=== PATIENT | male | born 1930 | race Caucasian/White ===

== ENCOUNTER 2017-05-09 08:41 | Outpatient (CLI) | payer OTHER | END 2017-05-09 09:30 | disposition home or self-care (01) | LOC: NUCLEAR 08:41 | DX: I65.23 Occlusion and stenosis of bilateral carotid arteries (principal) ==

== ENCOUNTER 2017-06-17 21:34 | Emergency (ER) | payer OTHER ==
[~2017-06-17] VITALS: Ht 165.1 cm; Wt 55.8 kg
[2017-06-17] MEDS ORDERED: LASIX20 MG (22:41)
[2017-06-17] MEDS ORDERED: ALPRAZOLAM0.25 MG (22:41)
[2017-06-17] MEDS ORDERED: ATENOLOL25 MG (22:42)
[2017-06-17] MEDS ORDERED: ASPIR 8181 MG (22:42)
[2017-06-17] MEDS ORDERED: ABATINEX680 MG (22:43)
[2017-06-20] MEDS ORDERED: IRON1TAB4 PO (07:19)
== END 2017-06-20 07:18 | disposition home or self-care (01) ==
LOC: ER 21:34
DX: D50.0 Iron deficiency anemia secondary to blood loss (chronic) (principal); K62.5 Hemorrhage of anus and rectum

== ENCOUNTER 2017-06-30 09:44 | Outpatient (CLI) | payer OTHER ==
[~2017-06-30 09:44] MED LIST: ABATINEX680 MG; ALPRAZOLAM0.25 MG; ASPIR 8181 MG; ATENOLOL25 MG; IRON1TAB4 PO; LASIX20 MG
== END 2017-06-30 09:57 | disposition home or self-care (01) ==
LOC: TOM 09:44
DX: K62.5 Hemorrhage of anus and rectum (principal); D50.9 Iron deficiency anemia, unspecified; K64.4 Residual hemorrhoidal skin tags; K59.09 Other constipation

== ENCOUNTER → 2017-07-25 | Emergency (ER) | payer OTHER ==
[~2017-07-25] VITALS: Ht 165.1 cm; Wt 45.4 kg
[~2017-07-25] MED LIST changes: +DANAZOL100 MG
== END | disposition home or self-care (01) ==
LOC: ER 15:06
DX: K62.5 Hemorrhage of anus and rectum (principal); D50.0 Iron deficiency anemia secondary to blood loss (chronic)

== ENCOUNTER → 2017-08-10 | Emergency (ER) | payer OTHER ==
[~2017-08-10] VITALS: Ht 162.6 cm; Wt 54.4 kg
== END | disposition home or self-care (01) ==
LOC: ER 13:58
DX: K52.9 Noninfective gastroenteritis and colitis, unspecified (principal); E86.0 Dehydration

== ENCOUNTER 2018-05-16 19:31 | Inpatient (IN) | payer OTHER ==
[~2018-05-16] VITALS: Ht 165.1 cm; Wt 56.7 kg
--- NOTE | 2018-05-16 20:22 | NUR ---
SE RECIBE PACIENTE ALERTA Y ORIENTADO X3 QUE REFIERE TOS HACE 3 BHARDWAJ Y DIARRHEA DESDE HOY. PACIENTE VERBALIZA SER ANEMICO. PACIENTE SE MUESTRA TENER DIARRHEA ACTIVA EN EL MOMENTO.
--- NOTE | 2018-05-16 22:05 | NUR ---
PT ALERTA Y ORIENTADO X3 ESFERAS SE LE ORIENTA SOBRE TX Y REFIERE ENTEDER. SE TANYA MUESTRAS DE PAWEL CON TECNICAS ASEPTICAS. SE ADMINISTRAN MEDICAMENTOS ORDENADOS. PT TOLERA [place].
--- NOTE | 2018-05-17 00:57 | NUR ---
SE CANALIZA A PTE EN ANTEBRAZO R+ CON ANGIO# 20, SE ORIENTA SOBRE MEDICAMENTO ADMINISTRADO PO, SE LE REALIZA TUBO PILOTOS Y SE LLAMA A BANCO DE PAWEL. SE HABLA CON STERLING DE BANCO DE PAWEL PARA RECOGER TUBOS PILOTOS.
--- NOTE | 2018-05-17 08:09 | NUR ---
SE RECIBE PTE DEL TURNO ANTERIOR ALERTA Y ORIENTADO X 3ESFERAS, EN CAMA NIVEL MAS BAJO, HOLLOWAY DE IDENTIFICACION Y BARANDAS ELEVADAS POR PRECAUCION. SE OBSERVA CON BUEN PATRON RESPIRATORIO Y PIEL TIBIA AL TACTO. IV PATENTE Y YASMNI DE EDEMA O ERITEMA CON 0.9% NSS @125ML/HR. PTE PENDIENTE A TRANSFUNDIR 2U DE PRBC FRACCIONADAS, LAS MISMAS YA DISPONIBLES. PENDIENTE A CONSULTA CON DR Jennifer SANDOVAL.
--- NOTE | 2018-05-17 08:30 | NUR ---
8:30 AM ' SE CVOMIENZA A RANSFUNDIR LA PRIMERA FRACCION DE LA PRIMERA UNIDAD, AL MOMENTO PTE TOLERA LA MISMA.
--- NOTE | 2018-05-17 12:47 | NUR ---
12:40 PM SE CULMINA LA PRIMERA FRACCION DE LA PRIMERA UNIDAD DE PRBC, AL MOMENTO PE YASMIN DE SIGNOS O SINTOMAS DE REACCION ADVERSA.
--- NOTE | 2018-05-17 14:02 | NUR ---
SE COMIENZA A TRANFUNDIR SEGUNDA FRACCION DE LA PRIMERA UNIDAD DE PRBC, PTE TOLERA LA MISMA, AL MOMENTO NO PRESENTA SIGNOS O SINTOMAS DE REACCION ADVERSA.
--- NOTE | 2018-05-17 15:30 | NUR ---
SE RECIBE DE TURNO ANTERIOR EN K3. PACIENTE MASCULINO. ALERTA Y ORIENTADO EN MARCEL ESFERAS. EN COMPANIA DE FAMILIAR. CABECERA A 30 GRADOS. BARANDAS ELEVADAS POR ROSENBERG SEGURIDAD. BUEN PATRON RESPIRATORIO. PIEL TIBIA AL TACTO. CANALIZACION PATENTE, YASMIN DE EDEMA Y/O ENROJECIMIENTO RECIBIENDO 0.9%NSS @ 125ML/HR. PACIENTE REBIENDO SEGUNDA FRACCION DE PRIMERA UNIDAD DE PRBC FRACCIONADA. PACIENTE EN ESPERA DE CONSULTA CON E JAIME. SE MANTIENE BAJO OBSERVACION POR CAMBIOS.
[2018-05-19] MEDS ORDERED: URETRON D-S TAB1 TAB PO (10:33)
== END 2018-05-19 13:19 | disposition home or self-care (01) | DRG 812 ==
LOC: ER 19:31 → MEDJ 05-17 16:15 → SEC-K 05-17 16:15 → MEDJ 05-17 16:48
PROVIDERS: ADMIT Internal Medicine
PROC: 30233N1 Transfusion of Nonautologous Red Blood Cells into Peripheral Vein, Percutaneous Approach (ICD-10-PCS; principal; 2018-05-17)
PROC: 3E0F7GC Introduction of Other Therapeutic Substance into Respiratory Tract, Via Natural or Artificial Opening (ICD-10-PCS; 2018-05-18)
DX: D50.0 Iron deficiency anemia secondary to blood loss (chronic) (principal); R65.10 Systemic inflammatory response syndrome (SIRS) of non-infectious origin without acute organ dysfunction; N18.4 Chronic kidney disease, stage 4 (severe); I13.0 Hypertensive heart and chronic kidney disease with heart failure and stage 1 through stage 4 chronic kidney disease, or unspecified chronic kidney disease; K62.5 Hemorrhage of anus and rectum; K52.89 Other specified noninfective gastroenteritis and colitis; R50.9 Fever, unspecified; E86.0 Dehydration; E87.5 Hyperkalemia; I50.89 Other heart failure; K59.09 Other constipation; K60.1 Chronic anal fissure

== ENCOUNTER 2018-08-15 10:53 | Outpatient (CLI) | payer OTHER ==
[~2018-08-15 10:53] MED LIST changes: +URETRON D-S TAB1 TAB PO
== END 2018-08-15 11:01 | disposition home or self-care (01) ==
LOC: RAD 501 10:53
DX: I15.8 Other secondary hypertension (principal); I10 Essential (primary) hypertension

== ENCOUNTER 2018-09-05 09:59 | Outpatient (CLI) | payer OTHER | END 2018-09-05 10:01 | disposition home or self-care (01) | LOC: SONOGRAMA 09:59 | DX: N18.4 Chronic kidney disease, stage 4 (severe) (principal) ==

== ENCOUNTER 2019-01-01 10:56 | Inpatient (IN) | payer OTHER ==
[~2019-01-01] VITALS: Ht 152.4 cm; Wt 5.0 kg
== END 2019-01-08 17:14 | disposition home or self-care (01) | DRG 194 ==
LOC: ER 10:56 → MEDJ 17:56
PROVIDERS: ADMIT Internal Medicine
PROC: BB24ZZZ Computerized Tomography (CT Scan) of Bilateral Lungs (ICD-10-PCS; principal; 2019-01-01)
PROC: 4A033R1 Measurement of Arterial Saturation, Peripheral, Percutaneous Approach (ICD-10-PCS; 2019-01-01)
PROC: 3E0F7GC Introduction of Other Therapeutic Substance into Respiratory Tract, Via Natural or Artificial Opening (ICD-10-PCS; 2019-01-01)
PROC: 30233N1 Transfusion of Nonautologous Red Blood Cells into Peripheral Vein, Percutaneous Approach (ICD-10-PCS; 2019-01-02)
DX: J18.1 Lobar pneumonia, unspecified organism (principal); J90 Pleural effusion, not elsewhere classified; N17.8 Other acute kidney failure; I13.0 Hypertensive heart and chronic kidney disease with heart failure and stage 1 through stage 4 chronic kidney disease, or unspecified chronic kidney disease; N18.4 Chronic kidney disease, stage 4 (severe); R65.10 Systemic inflammatory response syndrome (SIRS) of non-infectious origin without acute organ dysfunction; K62.5 Hemorrhage of anus and rectum; J98.11 Atelectasis; I50.32 Chronic diastolic (congestive) heart failure; C63.7 Malignant neoplasm of other specified male genital organs; I25.10 Atherosclerotic heart disease of native coronary artery without angina pectoris; D63.1 Anemia in chronic kidney disease; D46.A Refractory cytopenia with multilineage dysplasia; I11.0 Hypertensive heart disease with heart failure; K60.0 Acute anal fissure; D72.828 Other elevated white blood cell count